=== PATIENT | female | born 1990 | race Caucasian/White ===

== ENCOUNTER 2022-03-16 14:46 | Emergency (ER) | payer MEDICAID ==
[~2022-03-16] VITALS: Ht 139.7 cm; Wt 57.3 kg
[2022-03-16 15:10] VITALS: BP 121/74
[2022-03-16 15:46] LABS: BASOPHILS % (AUTO) 0.3 % (0.0-2.0); EOSINOPHILS # (AUTO) 0.1 K/uL (0-0.4); HEMATOCRIT 41.7 % (36-48); LYMPHOCYTES # (AUTO) 1.3 K/uL (2.5-16.5); LYMPHOCYTES % (AUTO) 18.3 % (20.5-51.1); MEAN CORPUSCULAR HEMOGLOBIN 29 pg (27-31); MEAN CORPUSCULAR HGB CONC 34 g/dL (33-37); MEAN CORPUSCULAR VOLUME 85.6 fL (80-94); MONOCYTES # (AUTO) 0.5 K/uL (0.8-1.0); MONOCYTES % (AUTO) 7.3 % (1.7-9.3); NEUTROPHILS # (AUTO) 4.9 K/uL (1.8-7.7); NEUTROPHILS % (AUTO) 72.1 % (42.2-75.2); PLATELET COUNT (AUTO) 228 K/uL (140-450); RED BLOOD CELL COUNT(AUTO) 4.87 MIL/uL (4.20-5.40); RED CELL DISTRIBUTION WIDTH 12.7 % (11.6-13.7); WHITE BLOOD COUNT (AUTO) 6.9 K/uL (4.8-10.8)
--- NOTE | 2022-03-16 16:18 | NUR ---
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 skin is pink/warm/dry. alert and awake, does not ambulate, abnormal flexion in upper and lower extremities, normal for baseline. lungs clear bl, heart rate even and regular. no reported fever, cp, sob, or cough at this time. patient positioned for comfort. hob elevated. bed down. ermd made aware of pt. pmh: cerebral palsy, encephalopathy, hydrocephalus nka med: denies
[2022-03-16 16:26] LABS: ALBUMIN 3.3 g/dL (3.4-5.0); ANION GAP 8.4 (8-16); CARBON DIOXIDE 29.1 mmol/L (21-32); CREATININE 0.5 mg/dL (0.6-1.3); POTASSIUM 3.5 mmol/L (3.5-5.1); TOTAL BILIRUBIN 0.4 mg/dL (0.0-1.0)
--- NOTE | 2022-03-16 16:27 | NUR ---
Female [employer] Radiant Analyst accompanied female patient for Rectal Exam.
--- NOTE | 2022-03-16 16:28 | NUR ---
pt diaper changed at this time, soft brown stool with bright red blood streak. pericare done at this time.
[2022-03-16] MEDS ORDERED: DOCU-299 PO (16:41)
--- NOTE | 2022-03-16 17:20 | NUR ---
pt given new diaper, new scrub pants before discharge.
[2022-03-16 17:21] VITALS: BP 121/74
--- NOTE | 2022-03-16 17:21 | NUR ---
Patient discharged with v/s stable. Written and verbal after care instructions given and explained. Patient alert, oriented and verbalized understanding of instructions. Wheel Chair Assisted with caregiver to car. All questions addressed prior to discharge. ID band removed. Patient advised to follow up with PMD. Rx of colace (script) given. Patient educated on indication of medication including possible reaction and side effects. Opportunity to ask questions provided and answered.
== END 2022-03-16 17:21 | disposition home or self-care (01) ==
LOC: MED 14:46
DX: K92.1 Melena (principal); Z79.899 Other long term (current) drug therapy
CPT/HCPCS: 36415; 80053; 84702; 85025; 99283